=== PATIENT | male | born 1940 | race Caucasian/White ===

== ENCOUNTER 2018-05-12 16:32 | Inpatient (IN) ==
[2018-05-12] MEDS ORDERED: QUEtiapine 25 MG Tablet PO ONE (17:43)
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
[2018-05-12] MEDS ORDERED: Haloperidol Inj 5 MG/ML Ampul IV.PUSH ONE (18:24)
[2018-05-12 19:37] LABS: Baso % (Auto) 0.8 % (0.0-2.0); Eos # (Auto) 0.1 th/mm3 (0.0-0.4); Eos % (Auto) 2.3 % (0.0-4.0); Hematocrit 42.9 % (39.0-51.0); Hemoglobin 14.7 gm/dL (13.0-17.0); Lymph # (Auto) 1.1 th/mm3 (1.0-4.8); Lymph % (Auto) 18.3 % (9.0-44.0); Mean Corpuscular HGB Conc 34.3 % (32.0-36.0); Mean Corpuscular Hemoglobin 34.8 pg (27.0-34.0); Mean Corpuscular Volume 101.3 fL (80.0-100.0); Mean Platelet Volume 7.6 fL (7.0-11.0); Mono # (Auto) 0.6 th/mm3 (0.0-0.9); Mono % (Auto) 9.5 % (0.0-8.0); Neut # (Auto) 4.1 th/mm3 (1.8-7.7); Neut % (Auto) 69.1 % (16.0-70.0); Platelet Count 158 th/mm3 (150-450); Red Blood Count 4.23 mil/mm3 (4.50-5.90); Red Cell Distribution Width 14.1 % (11.6-17.2); White Blood Count 5.9 th/mm3 (4.0-11.0)
[2018-05-12 19:41] LABS: Bilirubin,Urine Negative (Negative); Clarity,Urine Clear (Clear); Color,Urine Yellow (Yellw/Straw); Glucose,Urine (UA) Negative (Negative); Leukocyte Esterase,Urine Negative (Negative); Nitrite,Urine Negative (Negative); Specific Gravity,Urine 1.004 (1.002-1.035); Squamous Epithelial Cell,Urine <1 /hpf (0-5)
[2018-05-12 19:46] LABS: Amphetamine Screen,Urine Neg (Neg); Barbiturate Screen,Urine Neg (Neg); Cannabinoid Screen,Urine Neg (Neg); Cocaine Screen,Urine Neg (Neg)
[2018-05-12 19:47] LABS: Opiate Screen,Urine Neg (Neg)
[2018-05-12 19:52] LABS: Albumin 3.8 g/dL (3.4-5.0); Anion Gap 12 meq/L (5-15); Aspartate Aminotransferase 25 U/L (15-37); Blood Urea Nitrogen 12 mg/dL (7-18); Calcium 9.1 mg/dL (8.5-10.1); Carbon Dioxide 20.3 meq/L (21.0-32.0); Chloride 111 meq/L (98-107); Glomerular Filtration Rate 70 mL/min (>89); Glucose,Random 79 mg/dL (74-106); Potassium 3.6 meq/L (3.5-5.1); Sodium 143 meq/L (136-145)
[2018-05-12 19:53] LABS: Alanine Aminotransferase 26 U/L (12-78)
[2018-05-12 20:03] LABS: Alkaline Phosphatase 67 U/L (45-117); Magnesium 1.9 mg/dL (1.5-2.5); Total Protein 7.3 g/dL (6.4-8.2)
--- NOTE | 2018-05-12 22:09 | CT ---
EXAM DATE: 05/12/2018 10:03 PM EST AGE/SEX: 78 years / Male INDICATIONS: Altered mental status. CLINICAL DATA: This is the patient's initial encounter. Patient reports that signs and symptoms have been present for 1 day and indicates a pain score of Nonresponsive. MEDICAL/SURGICAL HISTORY: Dementia. None. RADIATION DOSE: 66.34 CTDI (mGy) COMPARISON: POI, CT BRAIN W/O CONTRAST, 04/26/2018. . TECHNIQUE: CT of the head without contrast. Using automated exposure control and adjustment of the mA and/or kV according to patient size, radiation dose was kept as low as reasonably achievable to ob tain optimal diagnostic quality images. DICOM format image data is available electronically for revi ew and comparison. FINDINGS: Cerebrum: The ventricles are normal for age. No evidence of midline shift, mass lesion, hemorrhage or acute infarction. No extraaxial fluid collections are seen. Posterior Fossa: The cerebellum and brainstem are intact. The 4th ventricle is midline. The cerebe llopontine angle is unremarkable. Extracranial: The visualized portion of the orbits is intact. Skull: The calvaria is intact. No evidence of skull fracture. CONCLUSION: 1. No acute intracranial abnormalities. . . Electronically signed by: Orion Cesar MD Board Certified Radiologist 05/12/2018 10:07 PM EST
[2018-05-13] MEDS ORDERED: Aluminum/Magnesium/Simethacone Susp 30 ML UDC PO PRN (12:14)
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
[2018-05-14 07:46] LABS: Calcium 8.8 mg/dL (8.5-10.1); Carbon Dioxide 29.5 meq/L (21.0-32.0); Potassium 3.9 meq/L (3.5-5.1)
[2018-05-14 07:50] LABS: Chol/HDL Ratio 2.04 Ratio; HDL Cholesterol 56.1 mg/dL (40.0-60.0)
[2018-05-14] MEDS: Pantoprazole Sodium 20 MG DR Tablet PO SCH (09:27)
--- NOTE | 2018-05-14 10:53 | P.HPPSY ---
Provisional Diagnosis Admission Date: May 13, 2018 12:18 [place].: Diagnoses: Dementia and other diseases classified elsewhere with behavioral disturbance code F02.8 1 Competence Certification of Person's Competence To Provide Express and Informed Consent I have personally examined Karthik Sanders, a person being served at [facility] on, May 14, 2018 1046. Express and informed consent means consent voluntarily given in writing, by a competent person, after sufficient explanation and disclosure of the subject matter involved to enable the person to make a knowing and willful decision without any element of force, fraud, deceit, duress, or other form of constraint or coercion. This person is 18 years of age or older, is not now known to be incompetent to consent to treatment with a guardian advocate, and does not have a health care surrogate or proxy currently making medical treatment decisions. I have found this person to be one of the following: [] Competent to provide express and informed consent, as defined above, for voluntary admission to this facility and is competent to provide express and informed consent for treatment. He/she has the consistent capacity to make well reasoned, willful, and knowing decisions concerning his or her medical or mental health treatment. The person fully and consistently understands the purpose of the admission for examination/placement and is fully capable of personally exercising all rights assured under [place] [] Incompetent to provide express and informed consent to voluntary admission, and this is incompetent to provide express and informed consent to treatment. The person must be transferred to involuntary status and a petition for a guardian advocate filed with the Circuit Court. [] Refusing to provide express and informed consent to voluntary admission but is competent to provide express and informed consent for treatment. The person must be discharged or transferred to involuntary status. Form shall be completed within 24 hours of a person's arrival at the receiving facility and filed in the clinical record of each person: 1. Admitted on a voluntary basis 2. Permitted to provide express and informed consent to his/her own treatment 3. Allowed to transfer from involuntary to voluntary status 4. Prior to permitting a person to consent to his or her own treatment after having been previously found incompetent to consent to treatment. History of Present Illness Capacity: Lacks capacity Chief Complaint: Dementia with violent behavior History of Present Illness: HPI: Patient is a 78-year-old male via the emergency department because of his change in behavior which included attempt to physically pull his out of her wheelchair. On admission the patient was only able to respond to his own name and when asked questions would sometimes repeat his first name. When asked his last name he gave his first name again. At this time the patient is in his room and was resting quietly but easily aroused. He is unable to give any significant history door call material and does not know where he is or what date this is and he does not understand his situation. The record suggests that the patient has not had a behavioral disturbance in the past even though he has been noted to have dementia. Sudden change in behavior. - Inpatient Certification I certify that the inpatient services were ordered in accordance with Medicare regulations governing the order. This includes certification that hospital inpatient services are reasonable and necessary and in the case of services not specified as inpatient-only under 42 CFR 419.22(n), that they are appropriately provided as inpatient services in accordance to with the 2-midnight benchmark under 43 CFR 412.3(e) I certify that inpatient psychiatric hospital services are medically necessary. Evaluation and treatment and/or diagnostic testing are expected to improve the patient's condition. The patient needs on a daily basis, active treatment furnished directly by or requiring the supervision of inpatient psychiatric facility personnel. Estimated Total Length of Stay (Days): 5 Plans for Post Hospital Care: Not yet determined Review of Systems Unable to obtain [facility] - History History Provided By: Patient - Medical History Medical History: Medical History (Last Reviewed 05/13/18 @ 14:24 by GAYATHRI Siddiqi) Surgical history unknown Dementia with psychosis Dysphasia Hallucination Motor apraxia - Tobacco History Smoking Status: Cognitive impairment - Alcohol History How Often Do You Have a Drink Containing Alcohol: Unable to Obtain - Substance Use History Substance History: No History of Abuse - Travel History Recent Travel in the [place] Within the Last 8 Weeks: No Recent Travel Out of the Country Within the Last 8 Weeks: No - Immunization History Tetanus Immunization: Unsure Hx Influenza Vaccine This Season: Unable to Assess Medications and Allergies Active Medications: Active Medications Al Hydrox/Mg Hydrox/Simethicone (Mag-Al Plus Susp Liq) 30 ml PO Q6H PRN PRN Reason: DYSPEPSIA Al Hydroxide/Mg Hydroxide (Milk Of Magnesia Liq) 30 ml PO Q12H PRN PRN Reason: Mild Constipation Atorvastatin Calcium (Lipitor) 20 mg PO QPM [facility] Last Admin: 05/13/18 18:24 Dose: 20 mg Memantine (Namenda) 5 mg PO BID [facility] Last Admin: 05/14/18 09:27 Dose: 5 mg Multivitamins (Theragran) 1 tab PO DAILY [facility] Last Admin: 05/14/18 09:27 Dose: 1 tab Oxymetazoline HCl (Afrin 0.05% Nasal [place]) 2 spray EACH NARE Q12H PRN PRN Reason: Dry Nasal Passages Pantoprazole Sodium (Protonix) 20 mg PO DAILY [facility] Last Admin: 05/14/18 09:27 Dose: 20 mg Tamsulosin HCl (Flomax) 0.4 mg PO DAILY [facility] Last Admin: 05/14/18 09:27 Dose: 0.4 mg Allergies Allergy/AdvReac Type Severity Reaction Status Date / Time morphine Allergy Hives Verified 05/12/18 22:32 Home Medications Medication Instructions Recorded Confirmed Type atorvastatin 20 mg PO QPM 05/12/18 05/12/18 History memantine 5 mg PO BID 05/12/18 05/12/18 History multivitamin 1 tab PO DAILY 05/12/18 05/12/18 History omeprazole 20 mg PO DAILY 05/12/18 05/12/18 History oxymetazoline [Nasal [place] Sinus] 2 spray INTRANASAL Q12H PRN 05/12/18 05/12/18 History tamsulosin 0.4 mg PO DAILY 05/12/18 05/12/18 History Results - Labs CBC & Chem 7: 05/12/18 17:00 05/14/18 05:52 Labs: Laboratory Results - last 24 hr 05/14/18 05:52 Sodium 145 Potassium 3.9 Chloride 110 H Carbon Dioxide 29.5 D Anion Gap 6 BUN 12 Creatinine 0.91 Estimated GFR 81 L Random Glucose 84 Calcium 8.8 Triglycerides 65 Cholesterol 115 L LDL Cholesterol, Calc 46 HDL Cholesterol 56.1 Cholesterol/HDL Ratio 2.04 Exam Vital signs: Vital Signs 05/13/18 15:48 05/14/18 05:41 Temperature 98.8 F 98.0 F Pulse Rate 75 88 Respiratory Rate 17 19 Blood Pressure 119/67 128/63 Pulse Oximetry 96 98 Intake & Output 05/13/18 05/14/18 05/14/18 18:59 06:59 18:59 Intake Total 360 / 360 Balance 360 / 360 Weight 67.3 kg Intake: Oral 360 / 360 Other: Weight On Admission 67.3 kg Mental Status Examination Appearance: Appropriate, Disheveled Consciousness: Alert Orientation: Person Motor Activity: Other (Lying in bed) Speech: Stuttering Language: Perseveration Fund of Knowledge: Poor Attention and Concentration: Inadequate Memory: Impaired Mood: Anxious Affect: Anxious Thought Process & Associations: Other (Unable to assess) Thought Content: Other (Unable to assess) Hallucination Type: Other (Unable to assess) Delusion Type: Other (Unable to assess) Insight: Poor Judgment: Poor Assessment and Plan - Plan Plan: Estimated LOS: [5] days Justification for Continued Inpatient Stay: At risk for decompensation at a lower level of care
--- NOTE | 2018-05-14 13:54 | P.CONPSY ---
Provisional Diagnosis Admission Date: May 13, 2018 12:18 [place] I.: Diagnoses: Dementia and other diseases classified elsewhere with behavioral disturbance code F02.8 1 History of Present Illness Service: psychiatry Primary Care Provider: UNKNOWN History of Present Illness: HPI: Patient is a 78-year-old male via the emergency department because of his change in behavior which included attempt to physically pull his out of her wheelchair. On admission the patient was only able to respond to his own name and when asked questions would sometimes repeat his first name. When asked his last name he gave his first name again. At this time the patient is in his room and was resting quietly but easily aroused. He is unable to give any significant history door call material and does not know where he is or what date this is and he does not understand his situation. The record suggests that the patient has not had a behavioral disturbance in the past even though he has been noted to have dementia. Sudden change in behavior. The patient is a 78-year-old man who presents to this facility under police initiated [place] act for being physically aggressive towards his . He is not previously known to this department. Reviewed electronic medical record, labs, discussed case with staff. His nurse reports is not had any behavioral issues so far this morning however, I note he did receive Seroquel, Haldol, and Ativan last night. Patient was assessed in D [facility]. He is found clad in [facility] and somewhat disheveled. He is grossly confused and difficult to assess as he is a poor historian. When asked how he is feeling today he states, "I am feeling white". When asked for his name he gives his first name as Karthik and his last name is Karthik. When asked what year it is he reports, "Karthik". The family relayed that the patient has been talking about family members recently and becoming agitated and that he attempted to physically pull his out of her wheelchair. This is new behavior for him per the family and the is fearful for her safety PMF - History History Provided By: Patient - Medical History Medical History: Medical History (Last Reviewed 05/13/18 @ 14:24 by GAYATHRI Siddiqi) Surgical history unknown Dementia with psychosis Dysphasia Hallucination Motor apraxia - Tobacco History Smoking Status: Cognitive impairment - Alcohol History How Often Do You Have a Drink Containing Alcohol: Unable to Obtain - Substance Use History Substance History: No History of Abuse - Travel History Recent Travel in the [place] Within the Last 8 Weeks: No Recent Travel Out of the Country Within the Last 8 Weeks: No - Immunization History Tetanus Immunization: Unsure Hx Influenza Vaccine This Season: Unable to Assess Medications and Allergies Active Medications: Active Medications Al Hydrox/Mg Hydrox/Simethicone (Mag-Al Plus Susp Liq) 30 ml PO Q6H PRN PRN Reason: DYSPEPSIA Al Hydroxide/Mg Hydroxide (Milk Of Magnesia Liq) 30 ml PO Q12H PRN PRN Reason: Mild Constipation Atorvastatin Calcium (Lipitor) 20 mg PO QPM [facility] Last Admin: 05/13/18 18:24 Dose: 20 mg Memantine (Namenda) 5 mg PO BID [facility] Last Admin: 05/14/18 09:27 Dose: 5 mg Multivitamins (Theragran) 1 tab PO DAILY [facility] Last Admin: 05/14/18 09:27 Dose: 1 tab Oxymetazoline HCl (Afrin 0.05% Nasal [place]) 2 spray EACH NARE Q12H PRN PRN Reason: Dry Nasal Passages Pantoprazole Sodium (Protonix) 20 mg PO DAILY [facility] Last Admin: 05/14/18 09:27 Dose: 20 mg Tamsulosin HCl (Flomax) 0.4 mg PO DAILY [facility] Last Admin: 05/14/18 09:27 Dose: 0.4 mg Allergies Allergy/AdvReac Type Severity Reaction Status Date / Time morphine Allergy Hives Verified 05/12/18 22:32 Home Medications Medication Instructions Recorded Confirmed Type atorvastatin 20 mg PO QPM 05/12/18 05/12/18 History memantine 5 mg PO BID 05/12/18 05/12/18 History multivitamin 1 tab PO DAILY 05/12/18 05/12/18 History omeprazole 20 mg PO DAILY 05/12/18 05/12/18 History oxymetazoline [Nasal [place] Sinus] 2 spray INTRANASAL Q12H PRN 05/12/18 05/12/18 History tamsulosin 0.4 mg PO DAILY 05/12/18 05/12/18 History Exam Vital signs: Vital Signs 05/13/18 15:48 05/14/18 05:41 Temperature 98.8 F 98.0 F Pulse Rate 75 88 Respiratory Rate 17 19 Blood Pressure 119/67 128/63 Pulse Oximetry 96 98 Intake & Output 05/13/18 05/14/18 05/14/18 18:59 06:59 18:59 Intake Total 720 / 720 Balance 720 / 720 Weight 67.3 kg Intake: Oral 720 / 720 Other: Weight On Admission 67.3 kg Mental Status Examination Appearance: Appropriate, Disheveled Consciousness: Alert Orientation: Person Motor Activity: Other (Lying in bed) Speech: Stuttering Language: Perseveration Fund of Knowledge: Poor Attention and Concentration: Inadequate Memory: Impaired Mood: Anxious Affect: Anxious Thought Process & Associations: Other (Unable to assess) Thought Content: Other (Unable to assess) Hallucination Type: Other (Unable to assess) Delusion Type: Other (Unable to assess) Insight: Poor Judgment: Poor Assessment and Plan - Plan Plan: Continua admission. Justification for Continued Inpatient Stay: The patient was seen today for second opinion. I have reviewed documentation. I agree and concur with assessment and plan.
[2018-05-14 16:02] LABS: Hemoglobin A1c 5.7 % (4.3-6.0)
[2018-05-15] MEDS: Pantoprazole Sodium 20 MG DR Tablet PO SCH (08:41)
--- NOTE | 2018-05-15 09:59 | P.PNPSY ---
Subjective Chief Complaint: Dementia with violent behavior Remarks: Subjective: Patient remains confused the only answers he seems to know her his name Karthik and yes which he answers to every question. Patient was discussed with social work msw and with the nursing staff. Appears sadly that the patient has reached baseline. There is no evidence of psychosis or behavioral disturbance at this time only the cognitive changes of late stage dementia. Family will be informed and patient placed at an SENIOR CARE since I do not believe he is capable of being managed at home. Review of Systems No complaints Mental Status Examination Appearance: Appropriate Consciousness: Alert Orientation: Person Motor Activity: Normal gait Speech: Stuttering Language: Perseveration Fund of Knowledge: Poor Attention and Concentration: Inadequate Memory: Impaired Mood: Anxious Affect: Appropriate Thought Process & Associations: Disorganized Thought Content: Other (Unable to assess) Hallucination Type: Other (Unable to assess) Delusion Type: None (Cognitively) Insight: Poor Judgment: Poor Assessment and Plan - Plan Plan: Continua admission. Justification for Continued Inpatient Stay: Patient will need placement in an SENIOR CARE since his cognitive decline would make it impossible for him to manage him otherwise.
[2018-05-15] MEDS ORDERED: Acetaminophen 325 MG Tablet PO PRN (17:06)
[2018-05-16 06:12] VITALS: BP 123/68; PULSE 86; RESP 20; TEMP 97.7; O2SAT 98
--- NOTE | 2018-05-16 06:40 | ECG ---
Date Performed: 05/14/2018 Time Performed: 13:51:37 PTAGE: 78 years EKG: Sinus rhythm NORMAL ECG PREVIOUS TRACING : 03/16/2014 21.40 Since the previous tracing, no significant change noted DOCTOR: Aramis Tyler Interpretating Date/Time 05/16/2018 06:39:04
[2018-05-16] MEDS: Pantoprazole Sodium 20 MG DR Tablet PO SCH (09:42)
--- NOTE | 2018-05-16 09:55 | P.DCO ---
- Physical Therapy Order: Evaluate and treat - Home Health Nursing Order: Medical education, Medication education-adverse effect, Nursing assessment with vital signs - Home Health Aide Order: To assist in: Bathing and personal care - Case Management Consult Case Management Consult-Home Health: Yes - Certification I have seen patient Karthik Sanders on 05/16/18. My clinical findings support the need for the requested home health care services because: Medication compliance is questionable, Limited ability to care for self, Impaired cognition/judgement I certify that my clinical findings support that this patient is homebound because: Unsafe to leave home unassisted, Unable to use public transportation
--- NOTE | 2018-05-16 09:59 | P.DCO ---
- Home Health Nursing Order: Medical education, Medication education-adverse effect, Nursing assessment with vital signs - Home Health Aide Order: To assist in: Bathing and personal care, [employer]o [employer] and meal prep - Case Management Consult Case Management Consult-Home Health: Yes - Certification I have seen patient Karthik Sanders on 05/16/18. My clinical findings support the need for the requested home health care services because: Medication compliance is questionable, Limited ability to care for self, Impaired cognition/judgement I certify that my clinical findings support that this patient is homebound because: Unsafe to leave home unassisted
--- NOTE | 2018-05-16 10:07 | P.DSPSY ---
Psychiatry Discharge Summary Inpatient Psychiatric care?: Yes Advance Directives: Unknown Reason for Unknown:: Due to Patient Condition Mental Health Advance Directive: No Health Care Proxy: Yes - Admission Admission Date: May 13, 2018 12:18 Brief History: HPI: Patient is a 78-year-old male via the emergency department because of his change in behavior which included attempt to physically pull his out of her wheelchair. On admission the patient was only able to respond to his own name and when asked questions would sometimes repeat his first name. When asked his last name he gave his first name again. At this time the patient is in his room and was resting quietly but easily aroused. He is unable to give any significant history door call material and does not know where he is or what date this is and he does not understand his situation. The record suggests that the patient has not had a behavioral disturbance in the past even though he has been noted to have dementia. Sudden change in behavior. Tobacco Use In Past 30 Days: No How Often Do You Have a Drink Containing Alcohol: Unable to Obtain Hospital Course: Course in the hospital: Patient is admitted with advanced dementia. At no time during his hospitalization the patient show any cognitive improvement nor did he show any evidence of a behavioral disturbance. Today the patient is feeling sick but since he answers yes to every question is very difficult to know exactly what he means by sick. He is lying in the bed and obviously in some minor distress. Given the prevalence of influenza and viral illnesses on the unit it is felt the patient would be better off at home with home health care. Prior to his discharge patient will have an evaluation by hospitalist - Discharge Discharge Date: 05/16/18 - Discharge Diagnosis (1) Dementia Code(s): F03.90 - Unspecified dementia without behavioral disturbance Status: Acute Discharge Disposition: Home - Discharge Instructions Discharge Diet: Regular Diet Activities You Can Perform: Weight Bearing As Tolerat - Discharge Time > 30 minutes Mental Status Examination Appearance: Appropriate Consciousness: Alert Orientation: Person Motor Activity: Normal gait Speech: Stuttering Language: Perseveration Fund of Knowledge: Poor Attention and Concentration: Inadequate Memory: Impaired Mood: Anxious Affect: Appropriate Thought Process & Associations: Disorganized Thought Content: Other (Unable to assess) Hallucination Type: Other (Unable to assess) Delusion Type: None (Cognitively) Insight: Poor Judgment: Poor Discharge/Advance Care Plan - Results Vital Signs: Last Vital Signs Temp 97.7 F 05/16/18 06:10 Pulse 86 05/16/18 06:10 Resp 20 05/16/18 06:10 BP 123/68 05/16/18 06:10 Pulse Ox 98 05/16/18 06:10 Lab Results: Laboratory Results Hemoglobin A1c 5.7 % (4.3-6.0) 05/14/18 05:52 Triglycerides 65 mg/dL (42-150) 05/14/18 05:52 Cholesterol 115 mg/dL (120-200) L 05/14/18 05:52 LDL Cholesterol, Calc 46 mg/dL (0-99) 05/14/18 05:52 HDL Cholesterol 56.1 mg/dL (40.0-60.0) 05/14/18 05:52 TSH 1.360 uIU/mL (0.358-3.740) 05/12/18 17:00 Urine Culture Comments Culture not ind 05/12/18 18:45 Summary of Procedures: None Imaging: ITS Impressions Head CT 05/12/18 17:17 CONCLUSION: 1. No acute intracranial abnormalities. . . Pending Results: None - Medications Number of antipsychotic medications at discharge: 0 - Discharge Care Plan Goals to Promote Your Health: * To prevent worsening of your condition and complications * To maintain your health at the optimal level Directions to Meet Your Goals: Take your medications as prescribed Follow your dietary instruction Follow activity as directed Keep your appointments as scheduled Take your immunizations and boosters as scheduled If your symptoms worsen call your PCP, if no PCP go to Urgent Care Center or Emergency Room For 16/10 questions related to your inpatient stay or results of tests pending at discharge, please contact Dr. Tru Jones MD at Smoking is Dangerous to Your Health. Avoid second hand smoking
== END 2018-05-16 14:25 | disposition home health service (06) | DRG 884 ==
LOC: NEPD 16:32 → NEDA 05-13 12:18 → H260 05-13 13:35
PROVIDERS: ADMIT Psychiatry & Neurology Child & Adolescent Psychiatry; ATTEND Psychiatry & Neurology Child & Adolescent Psychiatry
CPT/HCPCS: 70450; 80048; 80053; 80061; 80307; 81001; 83036; 83735; 84443; 85025; 90774; 90775; 90784; 90791; 93005; 96374; 96375; 99285; C8952; J1630; J2060